=== PATIENT | female | born 1975 | race African-American/Black ===

== ENCOUNTER 2023-02-13 16:58 | Emergency (ER) | payer BC ==
[~2023-02-13] VITALS: Ht 170.2 cm; Wt 97.5 kg
[2023-02-13] MEDS ORDERED: IV NORMAL SALINE 1000 ML BAG IV ONE (17:15)
[2023-02-13] MEDS ORDERED: ONDANSETRON 4 MG/2 ML VIAL IV ONE (17:15)
[2023-02-13] MEDS ORDERED: LORAZEPAM 2 MG/1 ML VIAL IV ONE (17:15)
[2023-02-13] MEDS ORDERED: LORAZEPAM 2 MG/1 ML VIAL ONE (17:24)
[2023-02-13] MEDS ORDERED: ONDANSETRON 4 MG/2 ML VIAL ONE (17:25)
[2023-02-13 17:36] LABS: HEMATOCRIT 42.3 % (31.2-41.9); MEAN CORPUSCULAR HEMOGLOBIN 35.9 uug (24.7-32.8); MEAN CORPUSCULAR VOLUME 105.1 fL (75.5-95.3); PLATELET COUNT (AUTO) 130 K/uL (179-408)
[2023-02-13 17:47] LABS: ALANINE AMINOTRANSFERASE 182 U/L (14-59); ALKALINE PHOSPHATASE 112 U/L (50-136); ASPARTATE AMINOTRANSFERASE 226 U/L (15-37); BILIRUBIN,DIRECT 0.3 mg/dL (0.0-0.2); CARBON DIOXIDE 28 mmol/L (21-32); CHLORIDE 102 mmol/L (98-107); CREATININE 0.7 mg/dL (0.6-1.3); GLUCOSE 105 mg/dL (74-106); TOTAL PROTEIN, SERUM 7.2 g/dL (6.4-8.2); UREA NITROGEN, BLOOD 4 mg/dL (7-18)
[2023-02-13 17:54] LABS: ACETAMINOPHEN < 2.0 ug/mL (10-30)
[2023-02-13 17:55] LABS: THYROID STIMULATING HORMONE 2.402 mIU/mL (0.358-3.740)
[2023-02-13] MEDS ORDERED: CHLO25CA22 PO ×2 (18:32→18:35)
--- NOTE | 2023-02-13 19:03 | NUR ---
REPORT RECEIVED FROM GABRIELLA MUNOZ.
--- NOTE | 2023-02-13 19:07 | NUR ---
PT A,A AND O X 4 WITH NO C/O PAIN AND NAD OBSERVED.
--- NOTE | 2023-02-13 19:40 | NUR ---
PT A,A AND O X 4 ,SLIGHTLY DIZZY WITH VSS AND NAD OBSERVED. Patient discharged to home in stable condition. Written and verbal after care instructions given. Patient verbalizes understanding of instructions. Stressed follow up or return to ER for worsening s/s. PT TAKEN OUT VIA W/C WAITING FOR FRIEND.
[2023-02-13 19:44] VITALS: BP 140/79; TEMP 97.9; O2SAT 99
== END 2023-02-13 19:40 | disposition home or self-care (01) ==
LOC: ER 17:25
DX: U07.1 COVID-19 (principal); R55 Syncope and collapse; D69.6 Thrombocytopenia, unspecified; D50.9 Iron deficiency anemia, unspecified; F10.239 Alcohol dependence with withdrawal, unspecified; E87.6 Hypokalemia; Y90.0 Blood alcohol level of less than 20 mg/100 ml
CPT/HCPCS: 80076; 80048; 84443; 85025; 87426; 93005; 71045; 70450; 99285; 96361; 96374; 96375; 80299; 80320; 80307; J2060; J2405; J7040; 36415; A4663; G0480